=== PATIENT | male | born 1990 | race Caucasian/White ===

== ENCOUNTER 2017-03-18 11:24 | Emergency (ER) | payer MEDICAID ==
[2017-03-18 12:15] VITALS: BP 134/76
--- NOTE | 2017-03-18 12:48 | EDM.PDOC ---
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 Bystander fisherman thought he was not breathing and gave him CPR until he pushed them away. Patient was confused for more than 30 minutes post-ictal state. He does not recall anything. He remained slightly confused and his slow improvement was noticeable from EMS to the ER. Onset: Sudden Duration: Minutes:, Improving Location: Reports: Generalized Severity: Moderate Improves with: Reports: None Worsens with: Reports: None Associated Symptoms: Reports: No Other Symptoms - Related Data Allergies Allergy/AdvReac Type Severity Reaction Status Date / Time No Known Allergies Allergy Verified 11/17/13 14:12 Social & Family History - Tobacco Use Smoking Status *Q: Former Smoker Years of Tobacco use: 1 - Alcohol Use Days Per Week of Alcohol Use: 0 - Recreational Drug Use Recreational Drug Use: Yes Drug Use in Last 12 Months: Yes Recreational Drug Type: Reports: Amphetamines (Speed), Cocaine, Ecstasy, LSD ( Acid), Marijuana/Hashish, Methamphetamine, PCP (Luis Felipe Dust), Psilocybin ( Mushrooms), Other (see below) Recreational Drug Use Frequency: Daily (since approx age 11 per patient) Recreational Drug Last Use: july 29 2013 ED ROS GENERAL - Review of Systems Review Of Systems: ROS reveals no pertinent complaints other than HPI. Neurological: Reports: Confusion ED EXAM, NEURO - Physical Exam Exam: See Below Exam Limited By: Altered Mental Status General Appearance: Alert, WD/WN, Mild Distress Eye Exam: Bilateral Eye: EOMI, PERRL Ears: Normal External Exam Nose: Normal Inspection Throat/Mouth: Normal Inspection Head Exam: Atraumatic, Normocephalic Neck: Normal Inspection Respiratory/Chest: No Respiratory Distress, Lungs Clear, Normal Breath Sounds Cardiovascular: Normal Peripheral Pulses GI/Abdominal: Normal Bowel Sounds Neurological: Alert, Normal Mood/Affect, CN II-XII Intact, Normal Reflexes, No Motor/Sensory Deficits. No: Oriented x 3 Course - Vital Signs Last Recorded V/S: Last Vital Signs Temp 36.1 C 03/18/17 12:12 Pulse 62 03/18/17 12:15 Resp 12 03/18/17 12:15 BP 134/76 03/18/17 12:12 Pulse Ox 97 03/18/17 12:15 - Orders/Labs/Meds Orders: Active Orders 24 hr Category Date Time Status EKG Documentation Completion [RC] ASDIRECTED Care 03/18/17 12:30 Ordered Head wo Cont [CT] Stat Exams 03/18/17 11:31 Ordered DRUG SCREEN, URINE [URCHEM] Stat Lab 03/18/17 11:32 Uncollected PROLACTIN [REF] Stat Lab 03/18/17 11:33 Ordered UA W/MICROSCOPIC [URIN] Stat Lab 03/18/17 11:32 Ordered EKG 12 Lead [EK] Routine Ther 03/18/17 12:29 Ordered Labs: Laboratory Tests 03/18/17 03/18/17 03/18/17 Range/Units 12:05 12:05 12:05 WBC 13.5 H (4.0-11.0) K/uL RBC 5.27 (4.50-6.50) M/uL Hgb 16.4 (13.0-18.0) g/dL Hct 47.3 (40.0-54.0) % MCV 90 (76-96) fL MCH 31.1 (27.0-32.0) pg MCHC 34.7 (31.0-35.0) g/dL RDW 13.3 (11.0-16.0) % Plt Count 231 (150-400) K/uL MPV 10.8 H (6.0-10.0) fL Neut % (Auto) 81.7 H (45.0-70.0) % Lymph % (Auto) 11.4 L (20.0-40.0) % [place] % (Auto) 6.3 (3.0-10.0) % Eos % (Auto) 0.4 L (1.0-5.0) % Baso % (Auto) 0.2 (0.0-0.5) % Neut # (Auto) 11.01 H (2.00-7.50) K/uL Lymph # (Auto) 1.53 (1.50-4.00) K/uL [place] # (Auto) 0.85 H (0.20-0.80) K/uL Eos # (Auto) 0.05 (0.04-0.40) K/uL Baso # (Auto) 0.03 (0.02-0.10) K/uL Sodium 141 (136-145) mmol/L Potassium 4.8 D (3.5-5.1) mmol/L Chloride 105 (98-107) mmol/L Carbon Dioxide 24.2 (21.0-32.0) mmol/L Anion Gap 16.6 H (5.0-15.0) mmol/L BUN 18 D (8-26) mg/dL Creatinine 1.11 D (0.70-1.30) mg/dL Est Cr Clr Drug Dosing TNP Estimated GFR (MDRD) > 60 (>60) MLS/MIN BUN/Creatinine Ratio 16.2 (6-25) Glucose 89 (74-100) mg/dL Hemoglobin A1c (4.5-6.2) % Calcium 9.3 (8.5-10.1) mg/dL Magnesium (1.8-2.4) mg/dL Total Bilirubin 0.4 D (0.0-1.0) mg/dL AST 21 (15-37) U/L ALT 31 (12-78) U/L Alkaline Phosphatase 85 (46-116) U/L Troponin I < 0.017 (0.000-0.060) ng/mL Total Protein 7.8 (6.4-8.2) g/dL Albumin 4.2 (3.4-5.0) g/dL Globulin 3.6 (2.2-4.2) g/dL Albumin/Globulin Ratio 1.2 (0.8-2.0) TSH, Ultra Sensitive 1.701 (0.358-3.740) uIU/mL 03/18/17 03/18/17 Range/Units 12:05 12:05 WBC (4.0-11.0) K/uL RBC (4.50-6.50) M/uL Hgb (13.0-18.0) g/dL Hct (40.0-54.0) % MCV (76-96) fL MCH (27.0-32.0) pg MCHC (31.0-35.0) g/dL RDW (11.0-16.0) % Plt Count (150-400) K/uL MPV (6.0-10.0) fL Neut % (Auto) (45.0-70.0) % Lymph % (Auto) (20.0-40.0) % [place] % (Auto) (3.0-10.0) % Eos % (Auto) (1.0-5.0) % Baso % (Auto) (0.0-0.5) % Neut # (Auto) (2.00-7.50) K/uL Lymph # (Auto) (1.50-4.00) K/uL [place] # (Auto) (0.20-0.80) K/uL Eos # (Auto) (0.04-0.40) K/uL Baso # (Auto) (0.02-0.10) K/uL Sodium (136-145) mmol/L Potassium (3.5-5.1) mmol/L Chloride (98-107) mmol/L Carbon Dioxide (21.0-32.0) mmol/L Anion Gap (5.0-15.0) mmol/L BUN (8-26) mg/dL Creatinine (0.70-1.30) mg/dL Est Cr Clr Drug Dosing Estimated GFR (MDRD) (>60) MLS/MIN BUN/Creatinine Ratio (6-25) Glucose (74-100) mg/dL Hemoglobin A1c 5.4 (4.5-6.2) % Calcium (8.5-10.1) mg/dL Magnesium 2.4 (1.8-2.4) mg/dL Total Bilirubin (0.0-1.0) mg/dL AST (15-37) U/L ALT (12-78) U/L Alkaline Phosphatase (46-116) U/L Troponin I (0.000-0.060) ng/mL Total Protein (6.4-8.2) g/dL Albumin (3.4-5.0) g/dL Globulin (2.2-4.2) g/dL Albumin/Globulin Ratio (0.8-2.0) TSH, Ultra Sensitive (0.358-3.740) uIU/mL - Re-Assessments/Exams Free Text/Narrative Re-Assessment/Exam: Patient reassessed after CT head and improvement continually seen. He was later able to recall the date. Departure - Departure Time of Disposition: 13:45 Disposition: Home, Self-Care 01 Condition: Good Clinical Impression: Grand mal seizure - Discharge Information Instructions: Seizure, Adult Referrals: PCP,None [Primary Care Provider] - Forms: ED Department Discharge Additional Instructions: See above Care Plan Goals: Follow up with neurologist. Jeronimo will call with the time. No driving or operating machinery until cleared by neurologist. If you develop another seizure return to ER immediately. No work until cleared by neurologist. - Problem List Review Problem List Initiated/Reviewed/Updated: Yes - My Orders Last 24 Hours: My Active Orders 03/18/17 11:31 Head wo Cont [CT] Stat 03/18/17 11:32 DRUG SCREEN, URINE [URCHEM] Stat UA W/MICROSCOPIC [URIN] Stat 03/18/17 11:33 PROLACTIN [REF] Stat 03/18/17 12:29 EKG 12 Lead [EK] Routine 03/18/17 12:30 EKG Documentation Completion [RC] ASDIRECTED - Assessment/Plan Last 24 Hours: My Active Orders 03/18/17 11:31 Head wo Cont [CT] Stat 03/18/17 11:32 DRUG SCREEN, URINE [URCHEM] Stat UA W/MICROSCOPIC [URIN] Stat 03/18/17 11:33 PROLACTIN [REF] Stat 03/18/17 12:29 EKG 12 Lead [EK] Routine 03/18/17 12:30 EKG Documentation Completion [RC] ASDIRECTED Plan: Patient to be setup with Neurology in [place] for f/u exam and management as needed. 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
--- NOTE | 2017-03-18 17:38 | CT ---
DATE OF SERVICE: 03/18/17 CLINICAL DATA: Seizure UNENHANCED BRAIN CT: Multislice acquisition through the brain without IV contrast was performed. Comparison is made to a prior exam dated 06/22/12. No masses or mass effect. No intracranial hemorrhage. No evidence of acute or subacute infarct. No osseous abnormalities. IMPRESSION: No acute intracranial abnormalities. [id number] [facility]
== END 2017-03-18 13:30 | disposition home or self-care (01) ==
LOC: LB.ED 11:24
DX: G40.409 Other generalized epilepsy and epileptic syndromes, not intractable, without status epilepticus (principal); Z87.891 Personal history of nicotine dependence
CPT/HCPCS: 36415; 70450; 80053; 83036; 83735; 84146; 84443; 84484; 85025; 93005; 99285-25

== ENCOUNTER 2017-06-16 20:40 | Emergency (ER) | payer MEDICAID ==
[2017-06-16] MEDS ORDERED: levETIRAcetam 500 MG Tab ONE ×3 (21:00→21:54)
[2017-06-16 21:05] VITALS: BP 141/82
--- NOTE | 2017-06-16 21:09 | EDM.PDOC ---
ED HPI GENERAL MEDICAL PROBLEM - General Chief Complaint: Neurological Problem Stated Complaint: SEIZURE Time Seen by Provider: 06/16/17 20:45 Source of Information: Reports: Patient History Limitations: Reports: No Limitations - History of Present Illness INITIAL COMMENTS - FREE TEXT/NARRATIVE: According to patient he had seizure first episode in February of 2017, when he was evaluated here in the emergency room. He has a follow up appointment with Neurologist Dr. Xie in [place] march of 2017. He was started on lamictal 100mg twice daily. He waited 1 month before starting the medication, and he claims he was very adamant. Since he started the medication in April he has had 6 episodes of generalized tonic clonic convulsions. he claims he had 2 episodes today and hence he did come into emergency room. He took 50mg of lamictal in the afternoon today after seizure episode.He has been having left sided headache, rates it as 7/10. he is not confused now. No nausea or vomiting. no tongue biting. No weakness. Apparently pt had head injury 3 years ago and had TBI, but never had seizures until February of 2017. Onset: Today Associated Symptoms: Reports: Headaches, Seizure. Denies: Confusion, Chest Pain , Cough, Fever/Chills, Nausea/Vomiting, Rash, Shortness of Breath, Syncope, Weakness Headache Pain Score (Numeric/FACES): 7 - Related Data Allergies Allergy/AdvReac Type Severity Reaction Status Date / Time No Known Allergies Allergy Verified 06/16/17 21:03 Home Meds: Home Meds lamoTRIgine [Lamotrigine] 100 mg PO BID 06/16/17 [History] Past Medical History HEENT History: Reports: Other (See Below) Other HEENT History: Hx TBI Musculoskeletal History: Reports: Other (See Below) Other Musculoskeletal History: Hx fractured neck and hip (left) Neurological History: Reports: Head Trauma, Seizure Other Neuro History: Has not had seizures x 5 years Psychiatric History: Reports: Addiction Other Psychiatric History: Past hx of addiction. Not using at this time - Infectious Disease History Infectious Disease History: Reports: Chicken Pox - Past Surgical History HEENT Surgical History: Reports: Other (See Below) Other HEENT Surgeries/Procedures: Hx fractured neck Neurological Surgical History: Reports: C-Spine Social & Family History - Family History Family Medical History: Noncontributory - Tobacco Use Smoking Status *Q: Former Smoker Years of Tobacco use: 1 Packs/Tins Daily: 2 Used Tobacco, but Quit: No Second Hand Smoke Exposure: Yes - Caffeine Use Caffeine Use: Reports: Coffee - Alcohol Use Days Per Week of Alcohol Use: 0 - Recreational Drug Use Recreational Drug Use: Yes Drug Use in Last 12 Months: Yes Recreational Drug Type: Reports: Amphetamines (Speed), Cocaine, Ecstasy, LSD ( Acid), Marijuana/Hashish, Methamphetamine, PCP (Luis Felipe Dust), Psilocybin ( Mushrooms), Other (see below) Recreational Drug Use Frequency: Daily (since approx age 11 per patient) Recreational Drug Last Use: july 29 2013 ED ROS GENERAL - Review of Systems Review Of Systems: See Below Constitutional: Denies: Fever, Chills, Malaise, Weakness, Fatigue HEENT: Denies: Rhinitis, Sinus Problem, Throat Pain Respiratory: Denies: Shortness of Breath, Wheezing, Cough, Sputum Cardiovascular: Denies: Chest Pain, Lightheadedness GI/Abdominal: Denies: Abdominal Pain, Nausea, Vomiting : Denies: Dysuria, Flank Pain, Frequency Musculoskeletal: Denies: Joint Pain, Joint Swelling Skin: Denies: Jaundice, Bruising, Pruritis, Rash Neurological: Reports: Headache, Seizure. Denies: Confusion, Dizziness, Numbness, Paresthesia, Syncope, Tingling, Tremors, Weakness, Gait Disturbance ED EXAM, GENERAL - Physical Exam Exam: See Below Exam Limited By: No Limitations General Appearance: Alert, WD/WN, No Apparent Distress Eye Exam: Bilateral Eye: EOMI, PERRL Ears: Normal External Exam, Normal Canal, Hearing Grossly Normal, Normal TMs Ear Exam: Bilateral Ear: Auricle Normal, Canal Normal, TM normal Nose: Normal Inspection, Normal Mucosa, No Blood Throat/Mouth: Normal Inspection, Normal Lips, Normal Teeth, Normal Gums, Normal Oropharynx, Normal Voice, No Airway Compromise Head: Atraumatic, Normocephalic Neck: Normal Inspection, Supple, Non-Tender, Full Range of Motion Respiratory/Chest: No Respiratory Distress, Lungs Clear, Normal Breath Sounds, No Accessory Muscle Use, Chest Non-Tender Cardiovascular: Normal Peripheral Pulses, Regular Rate, Rhythm, No Edema, No Gallop, No JVD, No Murmur, No Rub GI/Abdominal: Normal Bowel Sounds, Soft, Non-Tender, No Organomegaly, No Distention, No Abnormal Bruit, No Mass Back Exam: Normal Inspection, Full Range of Motion, NT Extremities: Normal Inspection, Normal Range of Motion, Non-Tender, Normal Capillary Refill, No Pedal Edema Neurological: Alert, Oriented, CN II-XII Intact, Normal Cognition, Normal Gait, Normal Reflexes, No Motor/Sensory Deficits Skin Exam: Warm, Intact Course - Vital Signs Text/Narrative:: Pt claims he has been on lamictal since april, it was slowly increased over increments of 25mg. Presently he is taking 100mg BID. he continues to have seizures. His CBC shows elevated white count of 22 K. rest of CBC is normal. His CMP is normal.His magnesium and phosphorus level are normal. His CT head has not acute changes. His white count elevation could be related to his seizures, but I did get work for infection. he does not have any symptoms of infection. Did get Chest xray and UA.Chest xray is normal. Still waiting on urine results. I did call [facility] as his neurologist is from [facility] and did discuss patient's condition with Dr. Cruz, neurologist pulmonary physical therapist. Her recommendation was to increase lamictal to 100mg in the morning and 150mg in the evening. Also advised to start Keepra for bridging the seizure episode until we can get the lamictal level up slowly to therapeutic level. He did received Keepra 1000mg orally in the emergency room and has script for keepra 500mg twice daily until he follows up with Dr. Cruz's office. Her office will call patient to set up appointment for further workup. He has been advised not to drive or work around sharp instrument, fire or around heights. Last Recorded V/S: Last Vital Signs Temp 97.3 F 06/16/17 20:47 Pulse 78 06/16/17 20:47 Resp 18 06/16/17 20:47 BP 141/82 H 06/16/17 20:47 Pulse Ox 100 06/16/17 20:47 - Orders/Labs/Meds Orders: Active Orders 24 hr Category Date Time Status CXR [Chest 2V] [CR] Stat Exams 06/16/17 21:26 Taken Head wo Cont [CT] Stat Exams 06/16/17 21:12 Taken DRUG SCREEN, URINE [URCHEM] Stat Lab 06/16/17 20:57 Uncollected LAMOTRIGINE [REF] Routine Lab 06/16/17 21:10 Received UA W/MICROSCOPIC [URIN] Stat Lab 06/16/17 21:39 Uncollected levETIRAcetam [Keppra] Med 06/17/17 21:47 Once 1,000 mg PO ONETIME ONE Medication Orders Levetiracetam (Keppra) 1,000 mg PO ONETIME ONE Stop: 06/17/17 21:48 Last Admin: 06/16/17 21:47 Dose: 1,000 mg Labs: Laboratory Tests 06/16/17 06/16/17 06/16/17 Range/Units 21:10 21:10 21:10 WBC 22.5 H* D (4.0-11.0) K/uL RBC 5.68 (4.50-6.50) M/uL Hgb 17.6 (13.0-18.0) g/dL Hct 50.0 (40.0-54.0) % MCV 88 (76-96) fL MCH 31.0 (27.0-32.0) pg MCHC 35.2 H (31.0-35.0) g/dL RDW 13.8 (11.0-16.0) % Plt Count 276 (150-400) K/uL MPV 10.4 H (6.0-10.0) fL Add Manual Diff Yes Neutrophils % (Manual) 90.0 H (45.0-70.0) % Lymphocytes % (Manual) 5.0 L (20.0-40.0) % Monocytes % (Manual) 5.0 (3.0-10.0) % Platelet Estimate Adequate Sodium 139 (136-145) mmol/L Potassium 4.8 (3.5-5.1) mmol/L Chloride 101 (98-107) mmol/L Carbon Dioxide 27.6 (21.0-32.0) mmol/L Anion Gap 15.2 H (5.0-15.0) mmol/L BUN 19 (8-26) mg/dL Creatinine 0.99 (0.70-1.30) mg/dL Est Cr Clr Drug Dosing TNP Estimated GFR (MDRD) > 60 (>60) MLS/MIN BUN/Creatinine Ratio 19.2 (6-25) Glucose 107 H (74-100) mg/dL Calcium 10.0 (8.5-10.1) mg/dL Phosphorus 2.3 L (2.5-4.9) mg/dL Magnesium 2.5 H (1.8-2.4) mg/dL Total Bilirubin 0.6 D (0.0-1.0) mg/dL AST 16 (15-37) U/L ALT 29 (12-78) U/L Alkaline Phosphatase 88 (46-116) U/L Total Protein 8.6 H (6.4-8.2) g/dL Albumin 4.9 (3.4-5.0) g/dL Globulin 3.7 (2.2-4.2) g/dL Albumin/Globulin Ratio 1.3 (0.8-2.0) Ethyl Alcohol (0.0-0.0) mg/dL 06/16/17 Range/Units 21:10 WBC (4.0-11.0) K/uL RBC (4.50-6.50) M/uL Hgb (13.0-18.0) g/dL Hct (40.0-54.0) % MCV (76-96) fL MCH (27.0-32.0) pg MCHC (31.0-35.0) g/dL RDW (11.0-16.0) % Plt Count (150-400) K/uL MPV (6.0-10.0) fL Add Manual Diff Neutrophils % (Manual) (45.0-70.0) % Lymphocytes % (Manual) (20.0-40.0) % Monocytes % (Manual) (3.0-10.0) % Platelet Estimate Sodium (136-145) mmol/L Potassium (3.5-5.1) mmol/L Chloride (98-107) mmol/L Carbon Dioxide (21.0-32.0) mmol/L Anion Gap (5.0-15.0) mmol/L BUN (8-26) mg/dL Creatinine (0.70-1.30) mg/dL Est Cr Clr Drug Dosing Estimated GFR (MDRD) (>60) MLS/MIN BUN/Creatinine Ratio (6-25) Glucose (74-100) mg/dL Calcium (8.5-10.1) mg/dL Phosphorus (2.5-4.9) mg/dL Magnesium (1.8-2.4) mg/dL Total Bilirubin (0.0-1.0) mg/dL AST (15-37) U/L ALT (12-78) U/L Alkaline Phosphatase (46-116) U/L Total Protein (6.4-8.2) g/dL Albumin (3.4-5.0) g/dL Globulin (2.2-4.2) g/dL Albumin/Globulin Ratio (0.8-2.0) Ethyl Alcohol 0.0 (0.0-0.0) mg/dL Meds: Medications Generic Name Dose Route Start Last Admin Trade Name Freq PRN Reason Stop Dose Admin Levetiracetam 1,000 mg 06/17/17 21:47 06/16/17 21:47 Keppra PO 06/17/17 21:48 1,000 mg ONETIME ONE Administration Discontinued Medications Generic Name Dose Route Start Last Admin Trade Name Freq PRN Reason Stop Dose Admin Levetiracetam Confirm 06/16/17 21:44 06/16/17 21:48 Keppra Administered 06/16/17 21:45 Not Given Dose 1,000 mg .ROUTE .STK-MED ONE Levetiracetam Confirm 06/16/17 21:54 Keppra Administered 06/16/17 21:55 Dose 500 mg .ROUTE .STK-MED ONE - Re-Assessments/Exams Free Text/Narrative Re-Assessment/Exam: 06/16/17 22:28 Pt has still not given the urine sample. he was given option to drink fluids. I have clearly explained to him that we need to get urine tested for 2 reasons. For workup of his white count and also to have urine drug screen done. We all the lab personnel, nurse and myself have been waiting for paast close to 2 hrs for him to give urine. he was offered about 600-700ml of water to drink. Apparently patient refuses to give us any urine sample even after explaining to him why we need the sample. Declines urinary cauterization. He agrees to sign against medical advised and walk out of the emergency room. 's recommendations were offered to patient and script for keepra given to patient. 06/16/17 22:35 Departure - Departure Time of Disposition: 22:30 Disposition: Against Medical Advice 07 Condition: Fair Clinical Impression: Seizure disorder - Discharge Information Instructions: Levetiracetam tablets, Seizure, Adult, [id number] Referrals: PCP,None [Primary Care Provider] - Forms: ED Department Discharge Additional Instructions: Pt claims he has been on lamictal since april, it was slowly increased over increments of 25mg. Presently he is taking 100mg BID. he continues to have seizures. His CBC shows elevated white count of 22 K. rest of CBC is normal. His CMP is normal.His magnesium and phosphorus level are normal. His CT head has not acute changes. His white count elevation could be related to his seizures, but I did get work for infection. he does not have any symptoms of infection. Did get Chest xray and UA.Chest xray is normal. I did call [facility] as his neurologist is from [facility] and did discuss patient's condition with Dr. Cruz, neurologist pulmonary physical therapist. Her recommendation was to increase lamictal to 100mg in the morning and 150mg in the evening. Also advised to start Keepra for bridging the seizure episode until we can get the lamictal level up slowly to therapeutic level. He did received Keepra 1000mg orally in the emergency room and has script for keepra 500mg twice daily until he follows up with Dr. Cruz's office. Her office will call patient to set up appointment for further workup. He has been advised not to drive or work around sharp instrument, fire or around heights. He should probably establish care with primary care provider where ever he prefers considering that seizure is going to be chronic disorder and needs close medical monitoring. Take Keppra (Levetiracetam) 500mg orally twice a day. Take dose I gave you in the morning, then get prescription filled at [facility]. We changed your dose of Lamictal to 100mg in the AM and 150mg in the PM. You already took Lamictal dose tonight. Neurologist from [place] will be contacting you tomorrow to set up further appointments. - Problem List & Annotations (1) Seizure disorder SNOMED Code(s): 594068048 Code(s): G40.909 - EPILEPSY, UNSP, NOT INTRACTABLE, WITHOUT STATUS EPILEPTICUS Status: Acute Current Visit: Yes - Problem List Review Problem List Initiated/Reviewed/Updated: Yes - My Orders Last 24 Hours: My Active Orders 06/16/17 20:57 DRUG SCREEN, URINE [URCHEM] Stat 06/16/17 21:10 LAMOTRIGINE [REF] Routine 06/16/17 21:12 Head wo Cont [CT] Stat 06/16/17 21:26 CXR [Chest 2V] [CR] Stat 06/16/17 21:39 UA W/MICROSCOPIC [URIN] Stat 06/17/17 21:47 levETIRAcetam [Keppra] 1,000 mg PO ONETIME ONE - Assessment/Plan Last 24 Hours: My Active Orders 06/16/17 20:57 DRUG SCREEN, URINE [URCHEM] Stat 06/16/17 21:10 LAMOTRIGINE [REF] Routine 06/16/17 21:12 Head wo Cont [CT] Stat 06/16/17 21:26 CXR [Chest 2V] [CR] Stat 06/16/17 21:39 UA W/MICROSCOPIC [URIN] Stat 06/17/17 21:47 levETIRAcetam [Keppra] 1,000 mg PO ONETIME ONE Assessment:: Seizure disorder Plan: Pt claims he has been on lamictal since april, it was slowly increased over increments of 25mg. Presently he is taking 100mg BID. he continues to have seizures. His CBC shows elevated white count of 22 K. rest of CBC is normal. His CMP is normal.His magnesium and phosphorus level are normal. His CT head has not acute changes. His white count elevation could be related to his seizures, but I did get work for infection. he does not have any symptoms of infection. Did get Chest xray and UA.Chest xray is normal. I did call [facility] as his neurologist is from [facility] and did discuss patient's condition with Dr. Cruz, neurologist pulmonary physical therapist. Her recommendation was to increase lamictal to 100mg in the morning and 150mg in the evening. Also advised to start Keepra for bridging the seizure episode until we can get the lamictal level up slowly to therapeutic level. He did received Keepra 1000mg orally in the emergency room and has script for keepra 500mg twice daily until he follows up with Dr. Cruz's office. Her office will call patient to set up appointment for further workup. He has been advised not to drive or work around sharp instrument, fire or around heights. He should probably establish care with primary care provider where ever he prefers considering that seizure is going to be chronic disorder and needs close medical monitoring. Pt has still not given the urine sample. he was given option to drink fluids. I have clearly explained to him that we need to get urine tested for 2 reasons. For workup of his white count and also to have urine drug screen done. We all the lab personnel, nurse and myself have been waiting for past close to 2 hrs for him to give urine. he was offered about 600-700ml of water to drink. Apparently patient refuses to give us any urine sample even after explaining to him why we need the sample. Declines urinary cauterization. He agrees to sign against medical advised and walk out of the emergency room. 's recommendations were offered to patient and script for keepra given to patient.
--- NOTE | 2017-06-17 08:15 | CT ---
DATE OF SERVICE: 06/17/2017 CLINICAL DATA: Seizure with headache UNENHANCED BRAIN CT: Multi slice acquisition through the brain without IV contrast was performed. Comparison is made to a prior exam dated 03/18/2017. No masses or mass effect. No intracranial hemorrhage. No evidence of acute or subacute infarct. There is a small linear density in the right whyte radiata region, which may be a small venous angioma. No osseous densities. [id number] [facility]
--- NOTE | 2017-06-17 08:17 | CR ---
DATE OF SERVICE: 06/16/17 CLINICAL DATA: elevated WBC PA AND LATERAL CHEST: The heart size is normal. The lungs are clear. No pneumothorax. No pleural effusions. No areas of consolidation. IMPRESSION: Normal exam. [id number] MTDD
[2017-06-17] MEDS ORDERED: levETIRAcetam 500 MG Tab PO ONE (21:47)
== END 2017-06-16 22:26 | disposition left against medical advice (07) ==
LOC: LB.ED 20:40
DX: G40.909 Epilepsy, unspecified, not intractable, without status epilepticus (principal); Z87.891 Personal history of nicotine dependence
CPT/HCPCS: 36415; 70450; 71020; 80053; 80175; 83735; 84100; 85025; 99285; A9270; G0480

== ENCOUNTER 2017-09-14 12:34 | Emergency (ER) | payer MEDICAID ==
[2017-09-14 13:04] VITALS: BP 141/75
[2017-09-14] MEDS ORDERED: Ketorolac 60 MG/2 ML SDV IVPUSH ONE (13:50)
[2017-09-14] MEDS ORDERED: levETIRAcetam 1,000 MG in Sodium Chloride 0.9% 100 ML IV ONE ×2 (13:51→14:08)
[2017-09-14] MEDS ORDERED: Ketorolac 30 MG/ML SDV ONE (14:02)
--- NOTE | 2017-09-14 16:57 | EDM.PDOC ---
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 He recently had seizures restart 6-7 months ago and came into the ER, was evaluated and counseled on cessation of alcohol and started on lamotrigine. He also saw Neurology in [facility] in 03/2017 for management and did not f/u. He was counseled on no driving and working with machinery. He returned with another seizure in may and a telephone consult was done at that time to adjust his meds to continue lamotrigine 100mg bid and bridge with 500mg keppra bid and f/u with neurology. He did not follow up with Neurology and remained on both medications. He did not have a seizure for over 3 months until he came into the ER today with a recent seizure. He states he had not taken his medication for over 3 doses. He does complain of a headache. Patient has been non-compliant and has been working and driving at work. Onset: Sudden Duration: Hour(s):, Improving Location: Reports: Head Severity: Severe Improves with: Reports: None Worsens with: Reports: None Associated Symptoms: Reports: Seizure Head Pain Score (Numeric/FACES): 10 - Related Data Allergies Allergy/AdvReac Type Severity Reaction Status Date / Time No Known Allergies Allergy Verified 09/14/17 13:05 Home Meds: Home Meds lamoTRIgine [Lamotrigine] 100 mg PO BID 06/16/17 [History] levETIRAcetam [Keppra] 500 mg PO BID 09/14/17 [History] Past Medical History HEENT History: Reports: Other (See Below) Other HEENT History: Hx TBI Musculoskeletal History: Reports: Other (See Below) Other Musculoskeletal History: Hx fractured neck and hip (left) Neurological History: Reports: Head Trauma, Seizure Other Neuro History: Has not had seizures x 5 years Psychiatric History: Reports: Addiction Other Psychiatric History: Past hx of addiction. Not using at this time - Infectious Disease History Infectious Disease History: Reports: Chicken Pox - Past Surgical History HEENT Surgical History: Reports: Other (See Below) Other HEENT Surgeries/Procedures: Hx fractured neck Neurological Surgical History: Reports: C-Spine Social & Family History - Family History Family Medical History: Noncontributory - Tobacco Use Smoking Status *Q: Former Smoker Years of Tobacco use: 1 Packs/Tins Daily: 2 Used Tobacco, but Quit: Yes Month Tobacco Last Used: 1 Second Hand Smoke Exposure: Yes - Caffeine Use Caffeine Use: Reports: Coffee - Alcohol Use Days Per Week of Alcohol Use: 0 - Recreational Drug Use Recreational Drug Use: Yes Drug Use in Last 12 Months: Yes Recreational Drug Type: Reports: Amphetamines (Speed), Cocaine, Ecstasy, LSD ( Acid), Marijuana/Hashish, Methamphetamine, PCP (Luis Felipe Dust), Psilocybin ( Mushrooms), Other (see below) Recreational Drug Use Frequency: Daily (since approx age 11 per patient) Recreational Drug Last Use: july 29 2013 ED ROS GENERAL - Review of Systems Review Of Systems: ROS reveals no pertinent complaints other than HPI. - Physical Exam Exam: See Below General Appearance: Alert, WD/WN, Mild Distress Eye Exam: Bilateral Eye: EOMI Ears: Normal External Exam, Normal Canal, Hearing Grossly Normal Nose: Normal Inspection, Normal Mucosa, No Blood Throat/Mouth: Normal Inspection, Normal Lips Head Exam: Atraumatic, Normocephalic Neck: Normal Inspection Respiratory/Chest: No Respiratory Distress, Lungs Clear Cardiovascular: Normal Peripheral Pulses, Regular Rate, Rhythm GI/Abdominal: Normal Bowel Sounds Neuro Exam (Abbreviated): Alert, Oriented, CN II-XII Intact, Normal Cognition, Normal Gait, Normal Reflexes, No Motor/Sensory Deficits Back Exam: Normal Inspection Extremities: Normal Inspection Psychiatric: Normal Affect, Normal Mood Skin Exam: Warm, Dry, Intact Course - Vital Signs Last Recorded V/S: Last Vital Signs Temp 36.6 C 09/14/17 13:01 Pulse 69 09/14/17 13:01 Resp 16 09/14/17 13:01 BP 141/75 H 09/14/17 13:01 Pulse Ox 100 09/14/17 13:01 - Orders/Labs/Meds Orders: Active Orders 24 hr Category Date Time Status Chest 1V Frontal [CR] Stat Exams 09/14/17 13:06 Taken KEPPRA [REF] Stat Lab 09/14/17 13:15 Received LAMOTRIGINE [REF] Stat Lab 09/14/17 13:15 Received PROLACTIN [REF] Stat Lab 09/14/17 13:15 Received Labs: Laboratory Tests 09/14/17 09/14/17 09/14/17 Range/Units 13:15 13:15 13:15 WBC 10.9 D (4.0-11.0) K/uL RBC 5.43 (4.50-6.50) M/uL Hgb 17.6 (13.0-18.0) g/dL Hct 50.3 (40.0-54.0) % MCV 93 (76-96) fL MCH 32.4 H (27.0-32.0) pg MCHC 35.0 (31.0-35.0) g/dL RDW 14.2 (11.0-16.0) % Plt Count 238 (150-400) K/uL MPV 10.1 H (6.0-10.0) fL Neut % (Auto) 87.8 H (45.0-70.0) % Lymph % (Auto) 7.1 L (20.0-40.0) % [place] % (Auto) 4.6 (3.0-10.0) % Eos % (Auto) 0.3 L (1.0-5.0) % Baso % (Auto) 0.2 (0.0-0.5) % Neut # (Auto) 9.59 H (2.00-7.50) K/uL Lymph # (Auto) 0.78 L (1.50-4.00) K/uL [place] # (Auto) 0.50 (0.20-0.80) K/uL Eos # (Auto) 0.03 L (0.04-0.40) K/uL Baso # (Auto) 0.02 (0.02-0.10) K/uL Sodium 140 (136-145) mmol/L Potassium 4.3 (3.5-5.1) mmol/L Chloride 102 (98-107) mmol/L Carbon Dioxide 23.0 (21.0-32.0) mmol/L Anion Gap 19.3 H (5.0-15.0) mmol/L BUN 14 D (8-26) mg/dL Creatinine 1.00 (0.70-1.30) mg/dL Est Cr Clr Drug Dosing TNP Estimated GFR (MDRD) > 60 (>60) MLS/MIN BUN/Creatinine Ratio 14.0 (6-25) Glucose 106 H (74-100) mg/dL Lactic Acid (0.90-1.70) mmol/L Calcium 9.3 (8.5-10.1) mg/dL Phosphorus 1.8 L (2.5-4.9) mg/dL Magnesium 2.2 (1.8-2.4) mg/dL Total Bilirubin 0.5 (0.0-1.0) mg/dL AST 20 (15-37) U/L ALT 25 (12-78) U/L Alkaline Phosphatase 62 (46-116) U/L Total Protein 7.6 (6.4-8.2) g/dL Albumin 4.5 (3.4-5.0) g/dL Globulin 3.1 (2.2-4.2) g/dL Albumin/Globulin Ratio 1.5 (0.8-2.0) Urine Color Urine Appearance (CLEAR) Urine pH (5.0-8.0) Ur Specific [place] (1.003-1.030) Urine Protein (NEGATIVE) mg/dL Urine Glucose (UA) (NEGATIVE) mg/dL Urine Ketones (NEGATIVE) mg/dL Urine Occult Blood (NEGATIVE) Urine Nitrite (NEGATIVE) Urine Bilirubin (NEGATIVE) Urine Urobilinogen (0.2-1.0) E.U./dL Ur Leukocyte Esterase (NEGATIVE) Urine RBC /HPF Urine WBC /HPF Ur Squamous Epith Cells /HPF Urine Opiates Screen (NEGATIVE) Ur Oxycodone Screen (NEGATIVE) Urine Methadone Screen (NEGATIVE) U Acetaminophen Screen (NEGATIVE) Ur Barbiturates Screen (NEGATIVE) Ur Tricyclics Screen (NEGATIVE) Ur Phencyclidine Scrn (NEGATIVE) Ur Amphetamine Screen (NEGATIVE) U Methamphetamines Scrn (NEGATIVE) U Benzodiazepines Scrn (NEGATIVE) U Cocaine Metab Screen (NEGATIVE) U Marijuana (THC) Screen (NEGATIVE) 09/14/17 09/14/17 09/14/17 Range/Units 13:15 13:40 13:40 WBC (4.0-11.0) K/uL RBC (4.50-6.50) M/uL Hgb (13.0-18.0) g/dL Hct (40.0-54.0) % MCV (76-96) fL MCH (27.0-32.0) pg MCHC (31.0-35.0) g/dL RDW (11.0-16.0) % Plt Count (150-400) K/uL MPV (6.0-10.0) fL Neut % (Auto) (45.0-70.0) % Lymph % (Auto) (20.0-40.0) % [place] % (Auto) (3.0-10.0) % Eos % (Auto) (1.0-5.0) % Baso % (Auto) (0.0-0.5) % Neut # (Auto) (2.00-7.50) K/uL Lymph # (Auto) (1.50-4.00) K/uL [place] # (Auto) (0.20-0.80) K/uL Eos # (Auto) (0.04-0.40) K/uL Baso # (Auto) (0.02-0.10) K/uL Sodium (136-145) mmol/L Potassium (3.5-5.1) mmol/L Chloride (98-107) mmol/L Carbon Dioxide (21.0-32.0) mmol/L Anion Gap (5.0-15.0) mmol/L BUN (8-26) mg/dL Creatinine (0.70-1.30) mg/dL Est Cr Clr Drug Dosing Estimated GFR (MDRD) (>60) MLS/MIN BUN/Creatinine Ratio (6-25) Glucose (74-100) mg/dL Lactic Acid 2.64 H (0.90-1.70) mmol/L Calcium (8.5-10.1) mg/dL Phosphorus (2.5-4.9) mg/dL Magnesium (1.8-2.4) mg/dL Total Bilirubin (0.0-1.0) mg/dL AST (15-37) U/L ALT (12-78) U/L Alkaline Phosphatase (46-116) U/L Total Protein (6.4-8.2) g/dL Albumin (3.4-5.0) g/dL Globulin (2.2-4.2) g/dL Albumin/Globulin Ratio (0.8-2.0) Urine Color Yellow Urine Appearance Clear (CLEAR) Urine pH 7.0 (5.0-8.0) Ur Specific [place] 1.025 (1.003-1.030) Urine Protein Trace H (NEGATIVE) mg/dL Urine Glucose (UA) Negative (NEGATIVE) mg/dL Urine Ketones Negative (NEGATIVE) mg/dL Urine Occult Blood Negative (NEGATIVE) Urine Nitrite Negative (NEGATIVE) Urine Bilirubin Negative (NEGATIVE) Urine Urobilinogen 0.2 (0.2-1.0) E.U./dL Ur Leukocyte Esterase Negative (NEGATIVE) Urine RBC Not seen /HPF Urine WBC Not seen /HPF Ur Squamous Epith Cells Rare /HPF Urine Opiates Screen Negative (NEGATIVE) Ur Oxycodone Screen Negative (NEGATIVE) Urine Methadone Screen Negative (NEGATIVE) U Acetaminophen Screen Negative (NEGATIVE) Ur Barbiturates Screen Negative (NEGATIVE) Ur Tricyclics Screen Negative (NEGATIVE) Ur Phencyclidine Scrn Negative (NEGATIVE) Ur Amphetamine Screen Negative (NEGATIVE) U Methamphetamines Scrn Negative (NEGATIVE) U Benzodiazepines Scrn Negative (NEGATIVE) U Cocaine Metab Screen Negative (NEGATIVE) U Marijuana (THC) Screen Positive H (NEGATIVE) Meds: Medications Discontinued Medications Generic Name Dose Route Start Last Admin Trade Name Freq PRN Reason Stop Dose Admin Levetiracetam 1,000 mg/ Sodium 110 mls @ 400 mls/hr 09/14/17 13:51 09/14/17 14:08 Chloride IV 09/14/17 14:05 400 mls/hr ONETIME ONE Administration Ketorolac Tromethamine 15 mg 09/14/17 13:50 09/14/17 14:00 Toradol IVPUSH 09/14/17 13:51 15 mg ONETIME ONE Administration Ketorolac Tromethamine Confirm 09/14/17 14:02 09/14/17 14:09 Toradol Administered 09/14/17 14:03 Not Given Dose 30 mg .ROUTE .STK-MED ONE Departure - Departure Time of Disposition: 15:00 Disposition: Home, Self-Care 01 Condition: Good Clinical Impression: Seizure disorder - Discharge Information Instructions: Ketorolac injection, Levetiracetam injection Referrals: PCP,None [Primary Care Provider] - Forms: ED Department Discharge - Problem List & Annotations (1) Seizure disorder SNOMED Code(s): 306309035 Code(s): G40.909 - EPILEPSY, UNSP, NOT INTRACTABLE, WITHOUT STATUS EPILEPTICUS Status: Chronic Priority: High - Problem List Review Problem List Initiated/Reviewed/Updated: Yes - My Orders Last 24 Hours: My Active Orders 09/14/17 13:06 Chest 1V Frontal [CR] Stat 09/14/17 13:15 KEPPRA [REF] Stat LAMOTRIGINE [REF] Stat PROLACTIN [REF] Stat - Assessment/Plan Last 24 Hours: My Active Orders 09/14/17 13:06 Chest 1V Frontal [CR] Stat 09/14/17 13:15 KEPPRA [REF] Stat LAMOTRIGINE [REF] Stat PROLACTIN [REF] Stat Plan: Patient counseled on compliance with medications and medical instruction for no driving and working with machinery. Discussed seriousness and danger to self and others. Patient understands the risks and states he will not drive or work with machinery but is concerned on how he will work then. Consulted Dr. Monique and followed recommendations of 1g Keppra bolus and remain on current medications as they have worked for him for the past 3 months. Patient to f/u with Neurology as directed. Counseled again on compliance and f/u. Patient and Aunt agree with plan of care and f/u. Rtc as directed as well for recheck and f/ u.
--- NOTE | 2017-09-14 17:09 | CR ---
DATE OF SERVICE: 09/14/17 CLINICAL DATA: seizure AP PORTABLE CHEST: Comparison is made to a prior exam dated 06/16/17. The heart size is normal. There is asymmetric density of the lungs, most likely related to positioning or due to technique with non-centering. The lungs appear clear. No pneumothorax. No pleural effusions. No evidence of acute intrathoracic disease. [id number] [facility]
== END 2017-09-14 15:00 | disposition home or self-care (01) ==
LOC: LB.ED 12:34
DX: G40.909 Epilepsy, unspecified, not intractable, without status epilepticus (principal); Z87.891 Personal history of nicotine dependence
CPT/HCPCS: 36415; 71045; 80053; 80175; 80177; 80307; 81001; 83605; 83735; 84100; 84146; 85025; 96365; 96375; 99285; J1885; J1953; J7030; 99283

== ENCOUNTER 2017-11-08 12:30 | Emergency (ER) | payer MEDICAID ==
--- NOTE | 2017-11-08 13:04 | EDM.PDOC ---
ED HPI GENERAL MEDICAL PROBLEM - General Chief Complaint: General Stated Complaint: SEIZURE Time Seen by Provider: 11/08/17 13:00 Source of Information: Reports: Patient History Limitations: Reports: No Limitations - History of Present Illness INITIAL COMMENTS - FREE TEXT/NARRATIVE: According to patient he was on the [employer] fishing today and he got into his Car to drive, when he claims he started to see the things that were behind him in the front of him and had a seizure episode. He woke up from a seizure and his friend drove him down to the emergency room. He was apparently confused after the seizure episode. but in the emergency room he is alert and oriented. He does drink and has been drinking more for past 2 days. Pt was sitting in his car when he had seizure and claims he did not hit or hurts himself with this episode. No confusion, no headache, no nausea or vomiting. No incontinence of stool or urine. Pt had history of TBI induced seizures for past 5 years and see neurology in [place].He has his last MRI of the brain about 2 wks ago in [place]. He also claims he had a seizure episode 1 month ago and his medication have not been changed. He takes lamictal and Keepra 500mg BID. Onset: Today Onset Date: 11/08/17 Onset Time: 12:00 Associated Symptoms: Reports: Seizure. Denies: Confusion, Chest Pain, Cough, Diaphoresis, Fever/Chills, Headaches, Nausea/Vomiting, Rash, Shortness of Breath , Syncope, Weakness - Related Data Allergies Allergy/AdvReac Type Severity Reaction Status Date / Time No Known Allergies Allergy Verified 09/14/17 13:05 Home Meds: Home Meds lamoTRIgine [Lamotrigine] 100 mg PO BID 06/16/17 [History] levETIRAcetam [Keppra] 500 mg PO BID 09/14/17 [History] Past Medical History HEENT History: Reports: Other (See Below) Other HEENT History: Hx TBI Musculoskeletal History: Reports: Other (See Below) Other Musculoskeletal History: Hx fractured neck and hip (left) Neurological History: Reports: Head Trauma, Seizure Other Neuro History: Has not had seizures x 5 years Psychiatric History: Reports: Addiction Other Psychiatric History: Past hx of addiction. Not using at this time - Infectious Disease History Infectious Disease History: Reports: Chicken Pox - Past Surgical History HEENT Surgical History: Reports: Other (See Below) Other HEENT Surgeries/Procedures: Hx fractured neck Neurological Surgical History: Reports: C-Spine Social & Family History - Family History Family Medical History: Noncontributory - Tobacco Use Smoking Status *Q: Former Smoker Years of Tobacco use: 1 Packs/Tins Daily: 2 Used Tobacco, but Quit: Yes Month/Year Tobacco Last Used: 1 Second Hand Smoke Exposure: Yes - Caffeine Use Caffeine Use: Reports: Coffee - Alcohol Use Days Per Week of Alcohol Use: 0 - Recreational Drug Use Recreational Drug Use: Yes Drug Use in Last 12 Months: Yes Recreational Drug Type: Reports: Amphetamines (Speed), Cocaine, Ecstasy, LSD ( Acid), Marijuana/Hashish, Methamphetamine, PCP (Luis Felipe Dust), Psilocybin ( Mushrooms), Other (see below) Recreational Drug Use Frequency: Daily (since approx age 11 per patient) Recreational Drug Last Use: july 29 2013 ED ROS GENERAL - Review of Systems Review Of Systems: See Below Constitutional: Denies: Fever, Chills, Night Sweats, Diaphoresis, Decreased Appetite HEENT: Denies: Rhinitis, Sinus Problem, Vision Change Respiratory: Denies: Shortness of Breath, Wheezing, Cough, Sputum Cardiovascular: Denies: Chest Pain, Lightheadedness GI/Abdominal: Denies: Abdominal Pain, Nausea, Stool Incontinence, Vomiting : Denies: Incontinence, Urgency Musculoskeletal: Denies: Joint Pain, Joint Swelling Skin: Denies: Cyanosis, Pruritis, Rash Neurological: Reports: Seizure. Denies: Confusion, Dizziness, Headache, Numbness, Syncope, Tingling, Tremors, Weakness, Gait Disturbance ED EXAM, GENERAL - Physical Exam Exam: See Below Free Text/Narrative:: smells of smoke all over him. Exam Limited By: No Limitations General Appearance: Alert, WD/WN, No Apparent Distress Eye Exam: Bilateral Eye: EOMI, PERRL Ears: Normal External Exam, Normal Canal, Hearing Grossly Normal, Normal TMs Ear Exam: Bilateral Ear: Auricle Normal, Canal Normal, TM normal Nose: Normal Inspection, Normal Mucosa, No Blood Throat/Mouth: Normal Inspection, Normal Lips, Normal Teeth, Normal Gums, Normal Oropharynx, Normal Voice, No Airway Compromise Head: Atraumatic, Normocephalic Neck: Normal Inspection, Supple, Non-Tender, Full Range of Motion Respiratory/Chest: No Respiratory Distress, Lungs Clear, Normal Breath Sounds, No Accessory Muscle Use, Chest Non-Tender Cardiovascular: Normal Peripheral Pulses, Regular Rate, Rhythm, No Edema, No Gallop, No JVD, No Murmur, No Rub Peripheral Pulses: 2+: Brachial (L), Brachial (R), Radial (L), Radial (R) GI/Abdominal: Normal Bowel Sounds, Soft, Non-Tender, No Organomegaly, No Distention, No Abnormal Bruit, No Mass Extremities: Normal Inspection, Normal Range of Motion, Non-Tender, Normal Capillary Refill, No Pedal Edema Neurological: Alert, Oriented, CN II-XII Intact, Normal Cognition, Normal Gait, Normal Reflexes, No Motor/Sensory Deficits Skin Exam: Warm, Intact Course - Vital Signs Text/Narrative:: Pt is alert and oriented time 3. His clinical exam and neuro exam is normal. He has strong smell of smoke and also he has been drinking alcohol. Pt does appear like he is non-complaint with his medication. CBC shows [id number] of white count which is reactive to seizure. His CMP and Mag and phosp are normal. His ETOH is elevated. Drug screen positive for marijuana. He has had 2 breakthrough seizure over the past 1 month. He has had MRI done in [place] 2 wks ago, but does not know the results. His Excessive ETOH could have triggered his seizure episode. I have advised patient to stay away from drugs and alcohol.Continue his medication and not skip the dose. HE should followup with his Neurologist. IF he is complaint and still having breakthrough seizure, will need to readjust his medications. At this point patient should not be driving with him having recurrent seizure, as he is at danger for others on the street. Needs to followup with his neurologist and have medication readjusted and be seizure free. Also needs to go off his alcohol. Could followup in the clinic if he needs help with Alcohol remission. - Orders/Labs/Meds Labs: Laboratory Tests 11/08/17 11/08/17 11/08/17 Range/Units 13:30 13:30 13:30 WBC 18.0 H D (4.0-11.0) K/uL RBC 5.22 (4.50-6.50) M/uL Hgb 16.3 (13.0-18.0) g/dL Hct 47.5 (40.0-54.0) % MCV 91 (76-96) fL MCH 31.2 (27.0-32.0) pg MCHC 34.3 (31.0-35.0) g/dL RDW 12.7 (11.0-16.0) % Plt Count 229 (150-400) K/uL MPV 10.3 H (6.0-10.0) fL Neut % (Auto) 86.6 H (45.0-70.0) % Lymph % (Auto) 6.8 L (20.0-40.0) % [place] % (Auto) 5.9 (3.0-10.0) % Eos % (Auto) 0.6 L (1.0-5.0) % Baso % (Auto) 0.1 (0.0-0.5) % Neut # (Auto) 15.57 H (2.00-7.50) K/uL Lymph # (Auto) 1.23 L (1.50-4.00) K/uL [place] # (Auto) 1.06 H (0.20-0.80) K/uL Eos # (Auto) 0.11 (0.04-0.40) K/uL Baso # (Auto) 0.02 (0.02-0.10) K/uL Sodium 141 (136-145) mmol/L Potassium 4.7 (3.5-5.1) mmol/L Chloride 104 (98-107) mmol/L Carbon Dioxide 24.5 (21.0-32.0) mmol/L Anion Gap 17.2 H (5.0-15.0) mmol/L BUN 16 (8-26) mg/dL Creatinine 0.97 (0.70-1.30) mg/dL Est Cr Clr Drug Dosing TNP Estimated GFR (MDRD) > 60 (>60) MLS/MIN BUN/Creatinine Ratio 16.5 (6-25) Glucose 91 (74-100) mg/dL Calcium 9.0 (8.5-10.1) mg/dL Phosphorus (2.5-4.9) mg/dL Magnesium (1.8-2.4) mg/dL Total Bilirubin 0.5 (0.0-1.0) mg/dL AST 20 (15-37) U/L ALT 26 (12-78) U/L Alkaline Phosphatase 85 (46-116) U/L Total Protein 7.8 (6.4-8.2) g/dL Albumin 4.3 (3.4-5.0) g/dL Globulin 3.5 (2.2-4.2) g/dL Albumin/Globulin Ratio 1.2 (0.8-2.0) Urine Opiates Screen Negative (NEGATIVE) Ur Oxycodone Screen Negative (NEGATIVE) Urine Methadone Screen Negative (NEGATIVE) U Acetaminophen Screen Negative (NEGATIVE) Ur Barbiturates Screen Negative (NEGATIVE) Ur Tricyclics Screen Negative (NEGATIVE) Ur Phencyclidine Scrn Negative (NEGATIVE) Ur Amphetamine Screen Negative (NEGATIVE) U Methamphetamines Scrn Negative (NEGATIVE) U Benzodiazepines Scrn Negative (NEGATIVE) U Cocaine Metab Screen Negative (NEGATIVE) U Marijuana (THC) Screen Positive H (NEGATIVE) Ethyl Alcohol (0.0-0.0) mg/dL 11/08/17 11/08/17 Range/Units 13:30 13:30 WBC (4.0-11.0) K/uL RBC (4.50-6.50) M/uL Hgb (13.0-18.0) g/dL Hct (40.0-54.0) % MCV (76-96) fL MCH (27.0-32.0) pg MCHC (31.0-35.0) g/dL RDW (11.0-16.0) % Plt Count (150-400) K/uL MPV (6.0-10.0) fL Neut % (Auto) (45.0-70.0) % Lymph % (Auto) (20.0-40.0) % [place] % (Auto) (3.0-10.0) % Eos % (Auto) (1.0-5.0) % Baso % (Auto) (0.0-0.5) % Neut # (Auto) (2.00-7.50) K/uL Lymph # (Auto) (1.50-4.00) K/uL [place] # (Auto) (0.20-0.80) K/uL Eos # (Auto) (0.04-0.40) K/uL Baso # (Auto) (0.02-0.10) K/uL Sodium (136-145) mmol/L Potassium (3.5-5.1) mmol/L Chloride (98-107) mmol/L Carbon Dioxide (21.0-32.0) mmol/L Anion Gap (5.0-15.0) mmol/L BUN (8-26) mg/dL Creatinine (0.70-1.30) mg/dL Est Cr Clr Drug Dosing Estimated GFR (MDRD) (>60) MLS/MIN BUN/Creatinine Ratio (6-25) Glucose (74-100) mg/dL Calcium (8.5-10.1) mg/dL Phosphorus 1.8 L (2.5-4.9) mg/dL Magnesium 2.3 (1.8-2.4) mg/dL Total Bilirubin (0.0-1.0) mg/dL AST (15-37) U/L ALT (12-78) U/L Alkaline Phosphatase (46-116) U/L Total Protein (6.4-8.2) g/dL Albumin (3.4-5.0) g/dL Globulin (2.2-4.2) g/dL Albumin/Globulin Ratio (0.8-2.0) Urine Opiates Screen (NEGATIVE) Ur Oxycodone Screen (NEGATIVE) Urine Methadone Screen (NEGATIVE) U Acetaminophen Screen (NEGATIVE) Ur Barbiturates Screen (NEGATIVE) Ur Tricyclics Screen (NEGATIVE) Ur Phencyclidine Scrn (NEGATIVE) Ur Amphetamine Screen (NEGATIVE) U Methamphetamines Scrn (NEGATIVE) U Benzodiazepines Scrn (NEGATIVE) U Cocaine Metab Screen (NEGATIVE) U Marijuana (THC) Screen (NEGATIVE) Ethyl Alcohol 5.0 H (0.0-0.0) mg/dL Departure - Departure Time of Disposition: 14:00 Disposition: Home, Self-Care 01 Condition: Fair Clinical Impression: Seizure disorder - Discharge Information Referrals: PCP,None [Primary Care Provider] - Forms: ED Department Discharge Additional Instructions: CBC shows [id number] of white count which is reactive to seizure. His CMP and Mag and phosp are normal. His ETOH is elevated. Drug screen positive for marijuana. He has had 2 breakthrough seizure over the past 1 month. He has had MRI done in [place] 2 wks ago, but does not know the results. His Excessive ETOH could have triggered his seizure episode. I have advised patient to stay away from drugs and alcohol.Continue his medication and not skip the dose. HE should followup with his Neurologist. IF he is complaint and still having breakthrough seizure, will need to readjust his medications. return to ER if he has second seizure At this point patient should not be driving with him having recurrent seizure, as he is at danger for others on the street. Needs to followup with his neurologist and have medication readjusted and be seizure free. Also needs to go off his alcohol. Could followup in the clinic if he needs help with Alcohol remission. - Problem List & Annotations (1) Seizure disorder SNOMED Code(s): 060359675 Code(s): G40.909 - EPILEPSY, UNSP, NOT INTRACTABLE, WITHOUT STATUS EPILEPTICUS Status: Chronic Priority: High Current Visit: Yes - Problem List Review Problem List Initiated/Reviewed/Updated: Yes - Assessment/Plan Assessment:: Seizure disorder Plan: CBC shows umioqo1fct of white count which is reactive to seizure. His CMP and Mag and phosp are normal. His ETOH is elevated. Drug screen positive for marijuana. He has had 2 breakthrough seizure over the past 1 month. He has had MRI done in [place] 2 wks ago, but does not know the results. His Excessive ETOH could have triggered his seizure episode. I have advised patient to stay away from drugs and alcohol.Continue his medication and not skip the dose. HE should followup with his Neurologist. IF he is complaint and still having breakthrough seizure, will need to readjust his medications. return to ER if he has second seizure At this point patient should not be driving with him having recurrent seizure, as he is at danger for others on the street. Needs to followup with his neurologist and have medication readjusted and be seizure free. Also needs to go off his alcohol. Could followup in the clinic if he needs help with Alcohol remission.
[2017-11-08 13:59] VITALS: BP 114/65
== END 2017-11-08 14:01 | disposition home or self-care (01) ==
LOC: LB.ED 12:30
DX: G40.909 Epilepsy, unspecified, not intractable, without status epilepticus (principal); Z86.73 Personal history of transient ischemic attack (TIA), and cerebral infarction without residual deficits; Z87.891 Personal history of nicotine dependence
CPT/HCPCS: 36415; 80053; 80307; 83735; 84100; 85025; 99284; G0480

== ENCOUNTER 2017-11-15 07:55 | Emergency (ER) | payer MEDICAID ==
[2017-11-15] MEDS: LORazepam 2 MG/ML SDV ONE ×2 (08:15→10:11)
[2017-11-15] MEDS ORDERED: LORazepam 2 MG/ML SDV IVPUSH ONE (08:15)
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
[2017-11-15] MEDS ORDERED: Sodium Chloride 0.9% 1,000 ML IV SCH (09:45)
[2017-11-15 11:22] VITALS: BP 129/86
--- NOTE | 2017-11-15 12:36 | CR ---
DATE OF SERVICE: 11/15/17 CLINICAL DATA: right hand pain RIGHT HAND: No acute fracture or dislocation. No lytic or blastic bone lesions. [id number] MTDD
== END 2017-11-15 10:50 | disposition home or self-care (01) ==
LOC: LB.ED 07:55
DX: G40.909 Epilepsy, unspecified, not intractable, without status epilepticus (principal); F91.1 Conduct disorder, childhood-onset type; Z87.891 Personal history of nicotine dependence
CPT/HCPCS: 36415; 73130-RT; 80053; 80307; 83735; 84100; 85014; 85048; 93005; 96361; 96374; 99285-25; A0425; A0429; J2060; J7040

== ENCOUNTER 2018-05-21 13:02 | Emergency (ER) | payer MEDICAID ==
[2018-05-21] MEDS: levETIRAcetam 500 MG in Sodium Chloride 0.9% 100 ML IV ONE (13:59)
[2018-05-21 14:13] VITALS: BP 137/82
--- NOTE | 2018-05-21 15:50 | EDM.PDOC ---
ED HPI GENERAL MEDICAL PROBLEM - General Chief Complaint: General Stated Complaint: SEIZURES Time Seen by Provider: 05/21/18 13:10 Source of Information: Reports: Patient History Limitations: Reports: No Limitations - History of Present Illness INITIAL COMMENTS - FREE TEXT/NARRATIVE: This is a 28yo M with an episode of a seizure. He has had seizures in the past with 17 episodes in a short time frame and was seen by Neurology and placed on Keppra. His last seizure was 2 weeks ago and prior to that was over a year ago when he was first diagnosed. Patient states he is compliant with his medications but may have missed up to 3 doses. He denies any other health concerns or recent illness. Onset: Sudden Duration: Minutes:, Resolved Prior to Arrival Associated Symptoms: Reports: No Other Symptoms Middle Headache Pain Score (Numeric/FACES): 2 - Related Data Allergies Allergy/AdvReac Type Severity Reaction Status Date / Time No Known Allergies Allergy Verified 09/14/17 13:05 Home Meds: Home Meds levETIRAcetam [Keppra] 500 mg PO BID 09/14/17 [History] Past Medical History HEENT History: Reports: Other (See Below) Other HEENT History: Hx TBI Musculoskeletal History: Reports: Other (See Below) Other Musculoskeletal History: Hx fractured neck and hip (left) Neurological History: Reports: Head Trauma, Seizure Other Neuro History: Has not had seizures x 5 years Psychiatric History: Reports: Addiction Other Psychiatric History: Past hx of addiction. Not using at this time - Infectious Disease History Infectious Disease History: Reports: Chicken Pox - Past Surgical History HEENT Surgical History: Reports: Other (See Below) Other HEENT Surgeries/Procedures: Hx fractured neck Neurological Surgical History: Reports: C-Spine Social & Family History - Family History Family Medical History: Noncontributory - Tobacco Use Smoking Status *Q: Current Every Day Smoker Years of Tobacco use: 12 Packs/Tins Daily: 1 - Caffeine Use Caffeine Use: Reports: Coffee, Soda Other Caffeine Use: 2 coffe, 2 energy drinks, 1 pop a day - Alcohol Use Date of Last Drink: 05/14/18 - Recreational Drug Use Recreational Drug Use: Yes Drug Use in Last 12 Months: Yes Recreational Drug Type: Reports: Marijuana/Hashish Recreational Drug Use Frequency: Not Used In Over 1 Month ED ROS GENERAL - Review of Systems Review Of Systems: ROS reveals no pertinent complaints other than HPI. ED EXAM, GENERAL - Physical Exam Exam: See Below Exam Limited By: No Limitations General Appearance: Alert, WD/WN, No Apparent Distress Eye Exam: Bilateral Eye: EOMI, PERRL Ears: Normal External Exam Nose: Normal Inspection Throat/Mouth: Normal Inspection Head: Atraumatic, Normocephalic Neck: Normal Inspection, Supple, Non-Tender Respiratory/Chest: No Respiratory Distress, Lungs Clear, Normal Breath Sounds Cardiovascular: Normal Peripheral Pulses, Regular Rate, Rhythm GI/Abdominal: Normal Bowel Sounds Back Exam: Normal Inspection Extremities: Normal Inspection, Normal Range of Motion Neurological: Alert, Oriented, CN II-XII Intact Psychiatric: Normal Affect, Normal Mood Skin Exam: Warm, Dry, Intact Course - Vital Signs Last Recorded V/S: Last Vital Signs Temp 36.3 C 05/21/18 13:10 Pulse 70 05/21/18 14:00 Resp BP 137/82 05/21/18 14:00 Pulse Ox 99 05/21/18 14:00 - Orders/Labs/Meds Orders: Active Orders 24 hr Category Date Time Status EKG Documentation Completion [RC] ASDIRECTED Care 05/21/18 13:22 Active LEVETIRACETAM (KEPPRA), S Stat Lab 05/21/18 13:50 Ordered PROLACTIN Stat Lab 05/21/18 13:30 Received Labs: Laboratory Tests 05/21/18 05/21/18 Range/Units 13:21 13:30 WBC 11.4 H (4.0-11.0) K/uL RBC 5.12 (4.50-6.50) M/uL Hgb 15.7 (13.0-18.0) g/dL Hct 46.8 (40.0-54.0) % MCV 91 (76-96) fL MCH 30.7 (27.0-32.0) pg MCHC 33.5 (31.0-35.0) g/dL RDW 14.4 (11.0-16.0) % Plt Count 242 (150-400) K/uL MPV 10.2 H (6.0-10.0) fL Neut % (Auto) 82.9 H (45.0-70.0) % Lymph % (Auto) 10.9 L (20.0-40.0) % [place] % (Auto) 5.0 (3.0-10.0) % Eos % (Auto) 0.9 L (1.0-5.0) % Baso % (Auto) 0.3 (0.0-0.5) % Neut # (Auto) 9.46 H (2.00-7.50) K/uL Lymph # (Auto) 1.24 L (1.50-4.00) K/uL [place] # (Auto) 0.57 (0.20-0.80) K/uL Eos # (Auto) 0.10 (0.04-0.40) K/uL Baso # (Auto) 0.03 (0.02-0.10) K/uL Sodium 140 (136-145) mmol/L Potassium 4.2 (3.5-5.1) mmol/L Chloride 106 (98-107) mmol/L Carbon Dioxide 27.4 (21.0-32.0) mmol/L Anion Gap 10.8 (5.0-15.0) mmol/L BUN 15 (8-26) mg/dL Creatinine 0.95 D (0.70-1.30) mg/dL Est Cr Clr Drug Dosing TNP Estimated GFR (MDRD) > 60 (>60) MLS/MIN BUN/Creatinine Ratio 15.8 (6-25) Glucose 84 (74-100) mg/dL Calcium 8.5 (8.5-10.1) mg/dL Total Bilirubin 0.3 (0.0-1.0) mg/dL AST 16 (15-37) U/L ALT 26 (12-78) U/L Alkaline Phosphatase 64 (46-116) U/L Total Protein 7.5 (6.4-8.2) g/dL Albumin 4.2 (3.4-5.0) g/dL Globulin 3.3 (2.2-4.2) g/dL Albumin/Globulin Ratio 1.3 (0.8-2.0) TSH, Ultra Sensitive 2.484 D (0.358-3.740) uIU/mL Meds: Medications Discontinued Medications Generic Name Dose Route Start Last Admin Trade Name Freq PRN Reason Stop Dose Admin Levetiracetam 500 mg/ Sodium 105 mls @ 400 mls/hr 05/21/18 13:48 05/21/18 13: 59 Chloride IV 05/21/18 14:02 400 mls/hr ONETIME ONE Administration Departure - Departure Time of Disposition: 14:35 Disposition: Home, Self-Care 01 Condition: Good Clinical Impression: Seizure disorder - Discharge Information Instructions: Non-Epileptic Seizures, Adult, Seizure, Adult Referrals: PCP,None [Primary Care Provider] - Forms: ED Department Discharge Additional Instructions: please remember to fill your prescription, and be aware of possible triggers for your seizures. return to ER or clinic should your seizures last longer thatn 5 minutes or you have not returned to baseline after any seizure. - Problem List Review Problem List Initiated/Reviewed/Updated: Yes - My Orders Last 24 Hours: My Active Orders 05/21/18 13:22 EKG Documentation Completion [RC] ASDIRECTED 05/21/18 13:30 PROLACTIN Stat 05/21/18 13:50 LEVETIRACETAM (KEPPRA), S Stat - Assessment/Plan Last 24 Hours: My Active Orders 05/21/18 13:22 EKG Documentation Completion [RC] ASDIRECTED 05/21/18 13:30 PROLACTIN Stat 05/21/18 13:50 LEVETIRACETAM (KEPPRA), S Stat Plan: Patient counseled on no driving, no boating, no climbing ladders, no working with machinery and f/u with Neurology for clearance. Patient to increase to Keppra 1000mg bid from 500mg bid. Counseled on rtc or ER if any concerns or return of seizure. F/u as directed and as needed.
== END 2018-05-21 14:50 | disposition home or self-care (01) ==
LOC: LB.ED 13:02
DX: G40.909 Epilepsy, unspecified, not intractable, without status epilepticus (principal); F17.210 Nicotine dependence, cigarettes, uncomplicated; Z86.73 Personal history of transient ischemic attack (TIA), and cerebral infarction without residual deficits; Z79.899 Other long term (current) drug therapy
CPT/HCPCS: 36415; 80053; 80177; 84146; 84443; 85025; 93005; 96374; 99284-25; A0425; A0429; J1953; J7030

== ENCOUNTER 2019-07-05 13:55 | Emergency (ER) | payer MEDICAID ==
[2019-07-05 14:24] VITALS: BP 145/105; PULSE 86
--- NOTE | 2019-07-05 16:08 | ER ---
REASON FOR EMERGENCY ROOM VISIT: Toothache. HISTORY: This is a 29-year-old man, who began to have a toothache involving his right lower jaw, approximately 2 days ago. Since then, it has been increasing to the point where he is. The pain has become intolerable for him. He has not had any fever or chills. He does have a history of previous dental extractions in the past. He does apparently have arrangements made to be seen by a dentist in [place] in 2 day's time. PAST MEDICAL HISTORY: 1. Seizure disorder. 2. History of alcohol addiction. 3. History of head trauma. 4. History of cervical fracture. 5. Depression. MEDICATIONS: Lamotrigine (see EMR). ALLERGIES: NO KNOWN DRUG ALLERGIES. REVIEW OF SYSTEMS: Pertinent positives and negatives as listed in the HPI. PHYSICAL EXAMINATION: GENERAL: He appears uncomfortable. VITAL SIGNS: He is afebrile. Blood pressure 145/105, pulse of 86, O2 sats 99%. HEENT: Oral examination, he has a couple of molars that have previously been extracted. He does have multiple fillings. His right 3rd mandibular molar is visible and this is the tooth that is hurting him. It is not exquisitely tender to touch. However, on palpation of his mandible, immediate release subjacent to that molar he does have some swelling, probably indicative of a dental abscess. There is no cervical adenopathy or neck tenderness. He has no swelling of his parotid area. IMPRESSION: Dental abscess. PLAN: He was given a prescription for amoxicillin/clavulanate 875 mg, dispensed #14, 1 p.o. q.12 hours until all are gone. He also was given a limited quantity of prescription for hydrocodone 5/325, dispensed #10, 1 p.o. q.4 hours p.r.n. pain. In light of his past history of alcohol addiction, I cautioned him to use to be judicious with his use of the hydrocodone. He is aware that it is an addictive opioid. He should use it judiciously and this will get him through until he can see his dentist. I emphasized the importance of him keeping his dental appointment and to make sure he calls to verify that this appointment is established. All questions were answered. He understands and agrees to this plan. MARY KAY /[id number]
== END 2019-07-05 15:01 | disposition home or self-care (01) ==
LOC: LB.ED 13:55
DX: K04.7 Periapical abscess without sinus (principal)
CPT/HCPCS: 99282

== ENCOUNTER 2022-07-18 15:03 | Emergency (ER) | payer MEDICAID ==
[2022-07-18] MEDS ORDERED: Lidocaine 1% with EPINEPHrine 1:100,000 20 ML MDV INJECT ONE (15:20)
[2022-07-18 15:38] VITALS: PULSE 70
[2022-07-18] MEDS ORDERED: Bacitracin Oint 1 GM U/D Packet TOP ONE (15:45)
== END 2022-07-18 15:50 | disposition home or self-care (01) ==
LOC: LB.ED 15:03
DX: S61.511A Laceration without foreign body of right wrist, initial encounter (principal); S81.812A Laceration without foreign body, left lower leg, initial encounter; W26.8XXA Contact with other sharp object(s), not elsewhere classified, initial encounter; Y99.0 Civilian activity done for income or pay
CPT/HCPCS: 12001; 99282

== ENCOUNTER 2022-08-23 15:01 | Emergency (ER) | payer MEDICAID ==
[2022-08-23 18:21] VITALS: BP 101/60; PULSE 93
[2022-08-23] MEDS: Lidocaine 2% with EPINEPHrine 1:100,000 20 ML MDV INJECT ONE (18:24)
== END 2022-08-23 16:40 | disposition home or self-care (01) ==
LOC: LB.ED 15:01
DX: S01.112A Laceration without foreign body of left eyelid and periocular area, initial encounter (principal); G40.909 Epilepsy, unspecified, not intractable, without status epilepticus; W19.XXXA Unspecified fall, initial encounter
CPT/HCPCS: 12011; 70450; 99284

== ENCOUNTER 2022-09-19 14:14 | Emergency (ER) | payer MEDICAID ==
[2022-09-19] MEDS ORDERED: Sodium Chloride 0.9% 10 ML Syringe FLUSH PRN (14:59)
[2022-09-19] MEDS: levETIRAcetam 1,000 MG in Sodium Chloride 0.9% 100 ML IV ONE (15:00)
[2022-09-19 15:17] LABS: ESTIMATED GFR 120 mL/min (>60)
[2022-09-19] MEDS: LORazepam 2 MG/ML SDV IVPUSH ONE (15:30)
[2022-09-19] MEDS ORDERED: LORazepam 2 MG/ML SDV ONE (15:30)
[2022-09-19 15:56] VITALS: BP 135/56; PULSE 88
[2022-09-19] MEDS: Ketorolac 30 MG/ML SDV IVPUSH ONE (16:00)
[2022-09-19] MEDS: Sodium Chloride 0.9% 1,000 ML IV SCH (16:00)
[2022-09-19] MEDS: Acetaminophen 325 MG Tab PO ONE (20:05)
[2022-09-20] MEDS: Acetaminophen 325 MG Tab ONE (04:59)
== END 2022-09-19 20:07 | disposition home or self-care (01) ==
LOC: LB.ED 14:14
DX: R56.9 Unspecified convulsions (principal)
CPT/HCPCS: 36415; 70450; 80048; 80307; 85027; 96361; 96374; 96375; 99283; 99284-25; A9270-GY; J1953; J2060; J3490; J7030

== ENCOUNTER 2022-10-03 13:24 | Emergency (ER) | payer MEDICAID ==
[2022-10-03] MEDS: Ketamine 200 MG/20 ML MDV IM ONE (14:20)
[2022-10-03] MEDS: Ketamine 500 MG/5 ML MDV ONE (14:53)
[2022-10-03 15:55] VITALS: BP 121/80; PULSE 61
== END 2022-10-03 15:45 | disposition home or self-care (01) ==
LOC: LB.ED 13:24
DX: F41.9 Anxiety disorder, unspecified (principal); F43.10 Post-traumatic stress disorder, unspecified; Z72.0 Tobacco use
CPT/HCPCS: 96372; 99283

== ENCOUNTER 2023-10-17 20:47 | Emergency (ER) | payer OTHER, MEDICAID ==
[2023-10-17] MEDS: Naloxone 2 MG/2 ML Syringe IVPUSH PRN (20:47)
[2023-10-17 20:55] LABS: BASOPHILS ABSOLUTE AUTO 0.02 K/uL (0.02-0.10); BASOPHILS PERCENT AUTO 0.2 % (0.0-0.5); EOSINOPHILS ABSOLUTE AUTO 0.12 K/uL (0.04-0.40); EOSINOPHILS PERCENT AUTO 0.9 % (1.0-5.0); HEMATOCRIT 49.7 % (40.0-54.0); HEMOGLOBIN 16.1 g/dL (13.0-18.0); LYMPHOCYTES ABSOLUTE AUTO 1.87 K/uL (1.50-4.00); LYMPHOCYTES PERCENT AUTO 14.7 % (20.0-40.0); MEAN CORPUSCULAR HGB CONC 32.4 g/dL (31.0-35.0); MEAN CORPUSCULAR VOLUME 93 fL (76-96); MEAN PLATELET VOLUME 9.3 fL (6.0-10.0); MONOCYTES ABSOLUTE AUTO 0.86 K/uL (0.20-0.80); MONOCYTES PERCENT AUTO 6.8 % (3.0-10.0); NEUTROPHILS ABSOLUTE AUTO 9.85 K/uL (2.00-7.50); NEUTROPHILS PERCENT AUTO 77.4 % (45.0-70.0); PLATELET COUNT,PLT 341 K/uL (150-400); RED BLOOD CELL COUNT 5.36 M/uL (4.50-6.50); RED CELL DISTRIBUTION WIDTH 13.2 % (11.0-16.0); WHITE BLOOD CELL COUNT,WBC 12.7 K/uL (4.0-11.0)
[2023-10-17] MEDS: Sodium Chloride 0.9% 1,000 ML IV ONE (21:13)
[2023-10-17] MEDS: diazePAM 5 MG/ML MDV IV SCH (21:21)
[2023-10-17 21:23] LABS: INR 1.1 (1.0-3.5)
[2023-10-17 21:24] LABS: PROTHROMBIN TIME 11.1 sec (9.0-11.5)
[2023-10-17 21:25] LABS: A/G RATIO 1.1 (0.8-2.0); ANION GAP 17.1 mmol/L (5.0-15.0); BILIRUBIN TOTAL 0.3 mg/dL (0.0-1.0); BUN/CREATININE RATIO 12.5 (6-25); CALCIUM 9.2 mg/dL (8.5-10.1); CARBON DIOXIDE,CO2 25.7 mmol/L (21.0-32.0); CREATININE 1.2 mg/dL (0.70-1.30); EST CRCL DRUG DOSING (CG) 83.39 mL/min; POTASSIUM,K 3.8 mmol/L (3.5-5.1); PROTEIN TOTAL,TP 7.6 g/dL (6.4-8.2); TROPONIN I HIGH SENSITIVITY 4.8 pg/ml (<=60.4)
[2023-10-17] MEDS: levETIRAcetam 500 MG in Sodium Chloride 0.9% 100 ML IV ONE (21:30)
[2023-10-17] MEDS: Haloperidol Lactate 5 MG/ML SDV IVPUSH SCH (21:43)
[2023-10-17] MEDS: LORazepam 2 MG/ML SDV IVPUSH PRN (21:45)
[2023-10-17] MEDS: diphenhydrAMINE 50 MG/ML SDV IVPUSH SCH (21:47)
[2023-10-17 21:50] LABS: APPEARANCE,URINE CLEAR (CLEAR); BILIRUBIN,URINE NEGATIVE (NEGATIVE); COLOR,URINE YELLOW; GLUCOSE,URINE NEGATIVE (NEGATIVE); KETONES,URINE NEGATIVE (NEGATIVE); LEUKOCYTE ESTERASE,URINE NEGATIVE (NEGATIVE); NITRITE,URINE NEGATIVE (NEGATIVE); OCCULT BLOOD,URINE NEGATIVE (NEGATIVE); PROTEIN,URINE 100 mg/dL (NEGATIVE); UROBILINOGEN,URINE 0.2 E.U./dL (0.2-1.0)
[2023-10-17 21:51] LABS: AMPHETAMINES SCREEN, URINE POSITIVE (NEGATIVE); METHAMPHETAMINES SCREEN, URINE POSITIVE (NEGATIVE)
[2023-10-17 21:52] LABS: BARBITURATE SCREEN,URINE NEGATIVE (NEGATIVE); BENZODIAZEPINES SCREEN,URINE NEGATIVE (NEGATIVE); METHADONE SCREEN, URINE NEGATIVE (NEGATIVE); OXYCODONE SCREEN,URINE NEGATIVE (NEGATIVE); THC SCREEN,URINE 50 NG/ML POSITIVE (NEGATIVE)
[2023-10-17 21:57] LABS: FINE GRANULAR CASTS,URINE OCCASIONAL /HPF; RBC,URINE NOT SEEN /HPF; WBC,URINE 0-5 /HPF
[2023-10-17 21:58] LABS: AMORPHOUS SEDIMENT,URINE FEW /HPF
[2023-10-17] MEDS: Ketamine 200 MG/20 ML MDV IVPUSH ONE (22:55)
[2023-10-17] MEDS ORDERED: Sodium Chloride 0.9% 10 ML Syringe FLUSH PRN (23:22)
[2023-10-18] MEDS: LORazepam 2 MG/ML SDV ONE ×2 (01:05→03:22)
[2023-10-18] MEDS: Ketamine 200 MG/20 ML MDV ONE (01:08)
[2023-10-18] MEDS: Sodium Chloride 0.9% 1,000 ML IV SCH (01:36)
[2023-10-18] MEDS: diphenhydrAMINE 50 MG/ML SDV ONE ×2 (03:22→14:13)
[2023-10-18] MEDS: Haloperidol Lactate 5 MG/ML SDV ONE ×2 (03:22→14:14)
[2023-10-18 09:03] LABS: BASOPHILS ABSOLUTE AUTO 0.02 K/uL (0.02-0.10); BASOPHILS PERCENT AUTO 0.1 % (0.0-0.5); EOSINOPHILS ABSOLUTE AUTO 0.12 K/uL (0.04-0.40); EOSINOPHILS PERCENT AUTO 0.8 % (1.0-5.0); HEMATOCRIT 48.5 % (40.0-54.0); HEMOGLOBIN 15.7 g/dL (13.0-18.0); LYMPHOCYTES ABSOLUTE AUTO 2.63 K/uL (1.50-4.00); LYMPHOCYTES PERCENT AUTO 17.5 % (20.0-40.0); MEAN CORPUSCULAR HEMOGLOBIN 30.4 pg (27.0-32.0); MEAN CORPUSCULAR HGB CONC 32.4 g/dL (31.0-35.0); MEAN CORPUSCULAR VOLUME 94 fL (76-96); MEAN PLATELET VOLUME 9.3 fL (6.0-10.0); MONOCYTES ABSOLUTE AUTO 1.33 K/uL (0.20-0.80); MONOCYTES PERCENT AUTO 8.8 % (3.0-10.0); NEUTROPHILS ABSOLUTE AUTO 10.95 K/uL (2.00-7.50); NEUTROPHILS PERCENT AUTO 72.8 % (45.0-70.0); PLATELET COUNT,PLT 281 K/uL (150-400); RED BLOOD CELL COUNT 5.16 M/uL (4.50-6.50); RED CELL DISTRIBUTION WIDTH 13.7 % (11.0-16.0); WHITE BLOOD CELL COUNT,WBC 15.1 K/uL (4.0-11.0)
[2023-10-18 09:16] LABS: ANION GAP 9.1 mmol/L (5.0-15.0); BUN/CREATININE RATIO 13.2 (6-25); CALCIUM 8.5 mg/dL (8.5-10.1); CARBON DIOXIDE,CO2 29.8 mmol/L (21.0-32.0); CREATININE 1.06 mg/dL (0.70-1.30); EST CRCL DRUG DOSING (CG) 94.4 mL/min; POTASSIUM,K 3.9 mmol/L (3.5-5.1)
[2023-10-18 14:13] VITALS: PULSE 93
[2023-10-18 14:14] VITALS: BP 101/57
== END 2023-10-18 12:56 ==
LOC: LB.ED 20:47
DX: R56.9 Unspecified convulsions (principal); F19.10 Other psychoactive substance abuse, uncomplicated; Z79.899 Other long term (current) drug therapy
CPT/HCPCS: 36415; 51702; 70450; 71250; 72125; 74176; 80048; 80053; 80307; 81001; 83605; 83690; 84484; 85025; 85610; 85730; 86850; 86900; 86901; 96361; 96374; 96375; 96376; 99285; 99285-25; A0425; A0429; J1200; J1630; J1953; J2060; J2310; J3360; J3490; J7030

== ENCOUNTER 2024-07-02 13:04 | Observation (INO) | payer MEDICAID ==
[2024-07-02] MEDS: HYDROmorphone 2 MG/ML Syringe IVPUSH ONE (13:13)
[2024-07-02 13:35] LABS: BASOPHILS ABSOLUTE AUTO 0.02 K/uL (0.02-0.10); BASOPHILS PERCENT AUTO 0.1 % (0.0-0.5); EOSINOPHILS ABSOLUTE AUTO 0.02 K/uL (0.04-0.40); EOSINOPHILS PERCENT AUTO 0.1 % (1.0-5.0); HEMATOCRIT 45.3 % (40.0-54.0); HEMOGLOBIN 15.2 g/dL (13.0-18.0); LYMPHOCYTES ABSOLUTE AUTO 0.82 K/uL (1.50-4.00); LYMPHOCYTES PERCENT AUTO 5.4 % (20.0-40.0); MEAN CORPUSCULAR HEMOGLOBIN 30.9 pg (27.0-32.0); MEAN CORPUSCULAR HGB CONC 33.6 g/dL (31.0-35.0); MEAN CORPUSCULAR VOLUME 92 fL (76-96); MONOCYTES ABSOLUTE AUTO 0.62 K/uL (0.20-0.80); MONOCYTES PERCENT AUTO 4.1 % (3.0-10.0); NEUTROPHILS ABSOLUTE AUTO 13.63 K/uL (2.00-7.50); NEUTROPHILS PERCENT AUTO 90.3 % (45.0-70.0); PLATELET COUNT,PLT 312 K/uL (150-400); RED BLOOD CELL COUNT 4.92 M/uL (4.50-6.50); RED CELL DISTRIBUTION WIDTH 13.7 % (11.0-16.0); WHITE BLOOD CELL COUNT,WBC 15.1 K/uL (4.0-11.0)
[2024-07-02 13:46] LABS: A/G RATIO 1.5 (0.8-2.0); ALBUMIN 4.8 g/dL (3.4-5.0); ANION GAP 15.1 mmol/L (5.0-15.0); BILIRUBIN TOTAL 0.6 mg/dL (0.0-1.0); BUN/CREATININE RATIO 22.3 (6-25); CALCIUM 8.9 mg/dL (8.5-10.1); CARBON DIOXIDE,CO2 29.2 mmol/L (21.0-32.0); CREATININE 1.03 mg/dL (0.70-1.30); EST CRCL DRUG DOSING (CG) 96.26 mL/min; POTASSIUM,K 4.3 mmol/L (3.5-5.1); PROTEIN TOTAL,TP 7.9 g/dL (6.4-8.2)
[2024-07-02] MEDS: Lidocaine 1% with EPINEPHrine 1:100,000 20 ML MDV INJECT ONE (14:39)
[2024-07-02] MEDS: Bacitracin Oint 1 GM U/D Packet TOP ONE (15:30)
[2024-07-02] MEDS: HYDROmorphone 2 MG/ML Syringe ONE (15:46)
[2024-07-02] MEDS: HYDROmorphone 2 MG/ML Syringe IVPUSH PRN ×2 (15:46→17:45)
[2024-07-02] MEDS ORDERED: Sodium Chloride 0.9% 10 ML Syringe FLUSH PRN (15:47)
[2024-07-02] MEDS ORDERED: Acetaminophen/HYDROcodone 325-5 MG Tab ONE (15:50)
[2024-07-02] MEDS: lamoTRIgine 100 MG Tab PO SCH (19:24)
[2024-07-03] MEDS: Ondansetron 4 MG/2 ML SDV IVPUSH PRN (03:47)
[2024-07-03] MEDS: LORazepam 2 MG/ML SDV IVPUSH ONE (04:43)
[2024-07-03] MEDS: LORazepam 2 MG/ML SDV ONE (04:43)
[2024-07-03] MEDS: Acetaminophen/HYDROcodone 325-5 MG Tab PO SCH (08:04)
[2024-07-03] MEDS: lamoTRIgine 100 MG Tab PO SCH (08:04)
[2024-07-03 11:01] VITALS: BP 115/65; PULSE 84
== END 2024-07-03 09:58 | disposition home or self-care (01) ==
LOC: LB.ED 13:04 → LB.MS 14:45
PROVIDERS: ADMIT Surgery; ATTEND Surgery
DX: S09.90XA Unspecified injury of head, initial encounter (principal); G40.909 Epilepsy, unspecified, not intractable, without status epilepticus; F90.9 Attention-deficit hyperactivity disorder, unspecified type; Z79.899 Other long term (current) drug therapy
CPT/HCPCS: 12001; 36415; 70450; 71250; 72125; 74176; 80053; 85025; 96374; 96375; 96376; 99222; 99238; 99283-25; A9270-GY; G0378; J1171; J2060; J2405

== ENCOUNTER 2025-04-22 10:32 | Emergency (ER) | payer MEDICAID ==
[2025-04-22 10:45] VITALS: BP 127/81; PULSE 88
== END 2025-04-22 11:00 | disposition home or self-care (01) ==
LOC: LB.ED 10:32
DX: G40.909 Epilepsy, unspecified, not intractable, without status epilepticus (principal); Z76.0 Encounter for issue of repeat prescription; Z79.899 Other long term (current) drug therapy
CPT/HCPCS: 99281; A9270-GY